=== PATIENT | male | born 1970 | race Caucasian/White ===

== ENCOUNTER 2019-02-08 09:10 | Inpatient (IN) ==
--- NOTE | 2019-02-08 09:36 | Emergency Department Note ---
Disposition Clinical Impression: Depression, Bipolar disorder Disposition: Admitted As Inpatient Condition: Fair Forms: ED Satisfaction Letter Time of Disposition: 10:45 Psych HPI - General Chief Complaint: ED Psychiatric Symptoms Stated Complaint: 1A depression Time Seen by Provider: 02/08/19 09:17 Source: patient - History of Present Illness HPI Narrative: Patient is a 48-year-old male who presents to emergency room with complaints of depression, anxiety. The patient apparently has been working through this as an outpatient, he states the last month it has been much worse. There is no other inciting events. The patient is not homicidal, he is not suicidal. The patient has no active plan to try and hurt himself. However he has been staying in his house for majority the time sleeping a majority of the time. There is only thing that makes his symptoms better. The patient has never tried to hurt himself. Patient has never been admitted to a psychiatric facility in the past. Patient denies any current headache, chest pain, shortness of breath. Patient has been battling significant anxiety especially when he tries to leave the house. Patient is on medications apparently for this. The patient is not having any hallucinations, he is not having any auditory or visual hallucinations. Patient apparently has been in contact again with his psychiatrist, they apparently has been in contact with the [facility] for [facility] for psychiatric care. - Related Data Home Medications Medication Instructions Recorded Confirmed Citalopram [CeleXA] 20 mg PO DAILY 01/31/19 02/08/19 Temazepam [Restoril] 30 mg PO HS 01/31/19 02/08/19 lamoTRIgine [Lamotrigine] 200 mg PO DAILY 01/31/19 02/08/19 Cetirizine HCl [Zyrtec] 10 mg PO DAILY 02/08/19 02/08/19 Eletriptan HBr [Relpax] 40 mg PO PRN PRN 02/08/19 02/08/19 [place] Carbonate 300 mg PO HS 02/08/19 02/08/19 clonazePAM [Klonopin] 0.5 mg PO DAILY 02/08/19 02/08/19 Allergies Allergy/AdvReac Type Severity Reaction Status Date / Time Penicillins Allergy Anaphylaxis Verified 01/31/19 09:48 Review of Systems: As mentioned per history of present illness and as follows. Constitutional: Negative for chills or fever HENT: Negative for sore throat. Eyes: Negative for visual disturbance Respiratory: Negative for shortness of breath. Cardiovascular: Negative for palpitations. Gastrointestinal: Negative for abdominal pain Genitourinary: Negative for dysuria Musculoskeletal: Negative for back pain. Skin: Negative for rash. Neurological: Negative for focal weakness Psychiatric/Behavioral: Positive for depression Past Medical History - Past Medical History Medical history: Reports: arthritis, GERD, migraine Psychiatric history: Reports: anxiety, bipolar, depression - Social History Smoking Status: Never smoker Alcohol use: Reports: none Drug use: Reports: none Physical Exam PHYSICAL EXAM Constitutional: Well developed, Well nourished, No acute distress, Non-toxic appearance. HENT: Normocephalic, Atraumatic, Bilateral external ears normal, Oropharynx moist, No oral exudates, Nose normal. Neck- Normal range of motion, No tenderness, Supple. Eyes: PERRL, EOMI, Conjunctiva normal,. Cardiovascular: Regular rate and rhythm without clicks, rubs, gallops or murmurs. Respiratory: Normal breath sounds, No respiratory distress, No wheezing, rhonchi, or crackles. GI: Soft, nontender, no evidence of guarding or peritoneal signs. Bowel sounds are active. Musculoskeletal: Good range of motion in all major joints. No tenderness to palpation or major deformities noted. +5/5 strength noted to all extremities. Integument: Warm, Dry, No erythema, No rash. No edema. Neurologic: Alert & oriented x 3, Normal sensory function, No focal deficits noted. CN II-XII grossly intact. Psychologic: The patient has a somewhat flat, depressed affect. Emergency room. The patient voices no homicidal or suicidal ideation. Patient does make good eye contact. Patient has overall good insight here in the emergency room as well. - General Limitations: no limitations General appearance: alert, in no apparent distress Course Vital Signs Temperature 98.2 F 02/08/19 09:22 Pulse Rate 68 02/08/19 09:22 Respiratory Rate 14 02/08/19 09:22 Blood Pressure 124/78 02/08/19 09:22 O2 Sat by Pulse Oximetry 97 02/08/19 09:22 Temperature 98.2 F 02/08/19 09:22 Pulse Rate 68 02/08/19 09:22 Respiratory Rate 14 02/08/19 09:22 Blood Pressure 124/78 02/08/19 09:22 O2 Sat by Pulse Oximetry 97 02/08/19 09:22 Oxygen Delivery Oxygen Delivery Room Air Psych - MDM Narrative Medical decision making narrative: Patient is medically clear from my standpoint. The patient this point in time. Case discussed with 1A we will be admitting the patient to their unit. The patient at this point time will be admitted in stable condition. Final impression 1. Bipolar disorder - Lab Data Result diagrams: 02/08/19 09:54 02/08/19 09:54 Lab Results 02/08/19 02/08/19 02/08/19 Range/Units 09:20 09:20 09:54 WBC 6.8 (4.3-11.1) K/mcL RBC 5.10 (4.19-5.50) M/mcL Hgb 16.0 (12.9-16.9) g/dL Hct 46.3 (37.5-50.1) % MCV 90.8 (83.0-100.0) fL MCH 31.4 (28.0-33.3) pg MCHC 34.6 (31.6-35.5) g/dL RDW 12.2 (11.5-14.5) % Plt Count 275 (140-400) K/mcL MPV 9.0 L (9.4-12.4) fL Immature Gran % 0.4 (0-4) % Seg Neutrophils % 61.6 % Lymphocytes % 18.4 % Monocytes % 5.4 % Eosinophils % 12.9 % Basophils % 1.3 % Neutrophils # 4.2 (1.6-8.9) K/mcL Lymphocytes # 1.3 (0.6-4.6) K/mcL Monocytes # 0.4 (0.0-1.3) K/mcL Eosinophils # 0.9 H (0.0-0.6) K/mcL Basophils # 0.1 (0.0-0.2) K/mcL Sodium (136-145) mEq/L Potassium (3.5-5.1) mEq/L Chloride (98-107) mEq/L Carbon Dioxide (23-29) mEq/L BUN (6-20) mg/dL Creatinine (0.70-1.30) mg/dL Est GFR ( Amer) (> 60) Est GFR (Non-Af Amer) (> 60) BUN/Creatinine Ratio (6-26) Glucose (70-105) mg/dL Calculated Osmolality (280-300) Calcium (8.6-10.3) mg/dL Urine Color Yellow (Yellow) Urine Clarity Clear (Clear) Urine pH 6.0 (5.0-8.0) pH Units Ur Specific [place] 1.014 (1.010-1.025) Urine Protein Negative (Neg-Trace) mg/dL Urine Glucose (UA) Normal (Normal) mg/dL Urine Ketones Negative (Negative) mg/dL Urine Blood Negative (Negative) Urine Nitrite Negative (Negative) Urine Bilirubin Negative (Negative) Urine Urobilinogen Normal (Normal) mg/dL Ur Leukocyte Esterase Negative (Negative) Salicylates (15.0-30.0) mg/dL Urine Opiates Screen Negative (Lvtcfi=381) ng/mL Ur Buprenorphine Scrn Negative (Cutoff=5) ng/mL Acetaminophen (10-20) mcg/mL Ur Barbiturates Screen Negative (Ynmcyc=607) ng/mL Ur Phencyclidine Scrn Negative (Cutoff=25) ng/mL Ur Amphetamines Screen Negative (Lwwsbf=3390) ng/mL U Benzodiazepines Scrn Negative (Fulbll=251) ng/mL Urine Cocaine Screen Negative (Cutoff= 300) ng/mL U Marijuana (THC) Screen Negative (Cutoff = 50) ng/mL Ur Drug Screen Interp See Below Ethyl Alcohol (Less than 10) mg/dL 02/08/19 Range/Units 09:54 WBC (4.3-11.1) K/mcL RBC (4.19-5.50) M/mcL Hgb (12.9-16.9) g/dL Hct (37.5-50.1) % MCV (83.0-100.0) fL MCH (28.0-33.3) pg MCHC (31.6-35.5) g/dL RDW (11.5-14.5) % Plt Count (140-400) K/mcL MPV (9.4-12.4) fL Immature Gran % (0-4) % Seg Neutrophils % % Lymphocytes % % Monocytes % % Eosinophils % % Basophils % % Neutrophils # (1.6-8.9) K/mcL Lymphocytes # (0.6-4.6) K/mcL Monocytes # (0.0-1.3) K/mcL Eosinophils # (0.0-0.6) K/mcL Basophils # (0.0-0.2) K/mcL Sodium 140 (136-145) mEq/L Potassium 4.1 (3.5-5.1) mEq/L Chloride 107 (98-107) mEq/L Carbon Dioxide 27 (23-29) mEq/L BUN 12 (6-20) mg/dL Creatinine 1.13 (0.70-1.30) mg/dL Est GFR ( Amer) > 60 (> 60) Est GFR (Non-Af Amer) > 60 (> 60) BUN/Creatinine Ratio 11 (6-26) Glucose 151 H (70-105) mg/dL Calculated Osmolality 293 (280-300) Calcium 9.5 (8.6-10.3) mg/dL Urine Color (Yellow) Urine Clarity (Clear) Urine pH (5.0-8.0) pH Units Ur Specific [place] (1.010-1.025) Urine Protein (Neg-Trace) mg/dL Urine Glucose (UA) (Normal) mg/dL Urine Ketones (Negative) mg/dL Urine Blood (Negative) Urine Nitrite (Negative) Urine Bilirubin (Negative) Urine Urobilinogen (Normal) mg/dL Ur Leukocyte Esterase (Negative) Salicylates < 2.5 L (15.0-30.0) mg/dL Urine Opiates Screen (Ivxeir=596) ng/mL Ur Buprenorphine Scrn (Cutoff=5) ng/mL Acetaminophen < 10 L (10-20) mcg/mL Ur Barbiturates Screen (Ofibii=065) ng/mL Ur Phencyclidine Scrn (Cutoff=25) ng/mL Ur Amphetamines Screen (Cjluzi=9186) ng/mL U Benzodiazepines Scrn (Lhnwjq=850) ng/mL Urine Cocaine Screen (Cutoff= 300) ng/mL U Marijuana (THC) Screen (Cutoff = 50) ng/mL Ur Drug Screen Interp Ethyl Alcohol < 10 (Less than 10) mg/dL Psychiatric Medical Clearance - Medical Clearance Checklist Medical History: No Social History Section defined Current Vitals: Last Vital Signs Temp 98.2 F 02/08/19 09:22 Pulse 68 02/08/19 09:22 Resp 14 02/08/19 09:22 BP 124/78 02/08/19 09:22 Pulse Ox 97 02/08/19 09:22 Psychiatric Lab Panel: Drug Levels and Toxicity 02/08/19 02/08/19 09:20 09:54 Urine Opiates Screen Negative Acetaminophen < 10 L Ur Barbiturates Screen Negative Ur Phencyclidine Scrn Negative Ur Amphetamines Screen Negative U Benzodiazepines Scrn Negative Urine Cocaine Screen Negative U Marijuana (THC) Screen Negative Ethyl Alcohol < 10 Abnormal Labs: Abnormal lab results MPV 9.0 fL (9.4-12.4) L 02/08/19 09:54 Eosinophils # 0.9 K/mcL (0.0-0.6) H 02/08/19 09:54 Glucose 151 mg/dL (70-105) H 02/08/19 09:54 Salicylates < 2.5 mg/dL (15.0-30.0) L 02/08/19 09:54 Acetaminophen < 10 mcg/mL (10-20) L 02/08/19 09:54 Statement of Medical Clearance: I have evaluated the patient, reviewed diagnostic information, and certify that the patient's medical condition is sufficiently stable that transfer to the psychiatric unit does not pose a significant risk of deterioration.
[2019-02-08 09:44] LABS: Bilirubin,Urine Negative (Negative); Blood,Urine Negative (Negative); Clarity,Urine Clear (Clear); Color,Urine Yellow (Yellow); Glucose,Urine (UA) Normal (Normal); Ketones,Urine Negative (Negative); Leukocyte Esterase,Urine Negative (Negative); Nitrite,Urine Negative (Negative); Protein,Urine Negative (Neg-Trace); Specific Gravity,Urine 1.014 (1.010-1.025); Urobilinogen,Urine Normal (Normal)
[2019-02-08 09:55] LABS: Amphetamine Screen,Urine Negative ng/mL (Cutoff=1000); Barbiturate Screen,Urine Negative ng/mL (Cutoff=200); Benzodiazepines Screen,Urine Negative ng/mL (Cutoff=200); Cannabinoid Screen,Urine Negative ng/mL (Cutoff = 50); Cocaine Screen,Urine Negative ng/mL (Cutoff= 300); Opiate Screen,Urine Negative ng/mL (Cutoff=300); Phencyclidine Screen,Urine Negative ng/mL (Cutoff=25)
[2019-02-08 10:09] LABS: Basophils # 0.1 K/mcL (0.0-0.2); Basophils % 1.3 %; Eosinophils # 0.9 K/mcL (0.0-0.6); Eosinophils % 12.9 %; Hematocrit 46.3 % (37.5-50.1); Immature Granulocytes % 0.4 % (0-4); Lymphocytes # 1.3 K/mcL (0.6-4.6); Lymphocytes % 18.4 %; Mean Corpuscular HGB Conc 34.6 g/dL (31.6-35.5); Mean Corpuscular Hemoglobin 31.4 pg (28.0-33.3); Mean Corpuscular Volume 90.8 fL (83.0-100.0); Monocytes # 0.4 K/mcL (0.0-1.3); Monocytes % 5.4 %; Neutrophils # 4.2 K/mcL (1.6-8.9); Platelet Count 275 K/mcL (140-400); Red Cell Distribution Width 12.2 % (11.5-14.5); Segmented Neutrophils % 61.6 %; White Blood Count 6.8 K/mcL (4.3-11.1)
[2019-02-08 10:25] LABS: Acetaminophen < 10 mcg/mL (10-20); BUN/Creatinine Ratio 11 (6-26); Blood Urea Nitrogen 12 mg/dL (6-20); Calcium 9.5 mg/dL (8.6-10.3); Carbon Dioxide 27 mEq/L (23-29); Chloride 107 mEq/L (98-107); Ethanol < 10 mg/dL (Less than 10); Glucose 151 mg/dL (70-105); Osmolality,Calculated 293 (280-300); Potassium 4.1 mEq/L (3.5-5.1); Salicylate < 2.5 mg/dL (15.0-30.0); Sodium 140 mEq/L (136-145); eGFR For African Americans > 60 (> 60); eGFR For Non-African Americans > 60 (> 60)
[2019-02-08] MEDS ORDERED: Acetaminophen 325 MG TABLET PO PRN (12:29)
[2019-02-08] MEDS ORDERED: Mag Hydrox/Al Hydrox/Simeth 30 ML UDC PO PRN (12:29)
[2019-02-08] MEDS ORDERED: hydrOXYzine pamoate 25 MG CAPSULE PO PRN (12:29)
[2019-02-08] MEDS ORDERED: MOM Conc 10 ML UD.LIQ PO PRN (12:29)
[2019-02-08] MEDS ORDERED: *HR* LORazepam 2 MG/ML VIAL IM PRN (12:29)
[2019-02-08] MEDS ORDERED: Haloperidol Lactate 5 MG/ML VIAL IM PRN (12:29)
[2019-02-08] MEDS ORDERED: *HR* LORazepam 1 MG TABLET PO PRN (12:29)
[2019-02-08] MEDS ORDERED: traZODone 50 MG TABLET PO PRN (12:29)
[2019-02-08] MEDS ORDERED: ELETRIPTAN HBR 40 MG PO PRN (12:46)
[2019-02-08] MEDS ORDERED: RELPAX 40 MG PO PRN ×2 (18:28→18:45)
[2019-02-08] MEDS: Temazepam 15 MG CAPSULE PO SCH (20:25)
[2019-02-08] MEDS ORDERED: Lithium Carbonate 300 MG CAPSULE PO SCH (21:00)
[2019-02-09] MEDS: Loratadine 10 MG TABLET PO SCH (08:34)
[2019-02-09] MEDS ORDERED: clonazePAM 0.5 MG TABLET PO SCH (09:00)
[2019-02-09] MEDS ORDERED: lamoTRIgine 100 MG TABLET PO SCH ×2 (09:00→09:45)
[2019-02-09] MEDS ORDERED: clonazePAM 0.5 MG TABLET PO PRN (09:41)
--- NOTE | 2019-02-09 09:56 | Psychiatry Progress Note ---
Date of Encounter: 02/09/19 Time of Encounter: 09:54 Subjective Interval history: Patient was sent to the emergency room by Dr. Sheriff. She had to send him once before earlier this week due to the severity of his rapid cycling bipolar disorder. He earlier this week he was having severe depressive episode and unable to care for his needs. He has had to be out on FMLA. Right now his depression has somewhat increased but he is feeling elevated with hyperverbal, racing thoughts, impulsivity. He reports that from October to November he did well but then in December and January he had mood changes that would last anywhere from 5 days to 2 weeks between depression and that it was very severe and lamberto or hypomania. He denies psychotic symptoms. He also reports anxiety with worry about a number of different topics. The theme was just increased to 600 mg by mouth daily at bedtime on Thursday. He has hopelessness. Review of Systems Constitutional: Denies: fever Eyes: Denies: eye pain Ears, Nose, Throat: Denies: ear pain Cardiovascular: Denies: chest pain Respiratory: Denies: cough Gastrointestinal: Denies: abdominal pain Genitourinary male: Denies: urgency Genitourinary female: Denies: urgency Musculoskeletal: Denies: back pain Integumentary: Denies: rash Neurological: Reports: weakness Psychiatric: Reports: depression, anxiety, abnormal sleep pattern, difficulty concentrating, hopelessness, irritability, mood swings Endocrine: Reports: fatigue Hematologic/Lymphatic: Denies: easy bleeding Allergic/Immunologic: Denies: facial swelling Results - Vital Signs Vital Signs: Temp Pulse Resp BP Pulse Ox 96.5 F L 79 18 125/81 97 02/09/19 09:00 02/09/19 09:00 02/09/19 09:00 02/09/19 09:00 02/09/19 09:00 - Drug Levels and Toxicology Drug Levels and Toxicology: Drug Levels and Toxicity 02/08/19 02/08/19 09:20 09:54 Urine Opiates Screen Negative Acetaminophen < 10 L Ur Barbiturates Screen Negative Ur Phencyclidine Scrn Negative Ur Amphetamines Screen Negative U Benzodiazepines Scrn Negative Urine Cocaine Screen Negative U Marijuana (THC) Screen Negative Ethyl Alcohol < 10 - Labs Labs: Laboratory Results - last 24 hr 02/08/19 02/08/19 02/08/19 09:20 09:54 09:54 WBC 6.8 RBC 5.10 Hgb 16.0 Hct 46.3 MCV 90.8 MCH 31.4 MCHC 34.6 RDW 12.2 Plt Count 275 MPV 9.0 L Immature Gran % 0.4 Seg Neutrophils % 61.6 Lymphocytes % 18.4 Monocytes % 5.4 Eosinophils % 12.9 Basophils % 1.3 Neutrophils # 4.2 Lymphocytes # 1.3 Monocytes # 0.4 Eosinophils # 0.9 H Basophils # 0.1 Sodium 140 Potassium 4.1 Chloride 107 Carbon Dioxide 27 BUN 12 Creatinine 1.13 Est GFR ( Amer) > 60 Est GFR (Non-Af Amer) > 60 BUN/Creatinine Ratio 11 Glucose 151 H Calculated Osmolality 293 Calcium 9.5 Salicylates < 2.5 L Urine Opiates Screen Negative Ur Buprenorphine Scrn Negative Acetaminophen < 10 L Ur Barbiturates Screen Negative Ur Phencyclidine Scrn Negative Ur Amphetamines Screen Negative U Benzodiazepines Scrn Negative Urine Cocaine Screen Negative U Marijuana (THC) Screen Negative Ethyl Alcohol < 10 Consult Discharge Plan - Plan Referrals: NONE,PCP [Primary Care Provider] - - Attending Attestation I examined this patient and my medical decision-making was reviewed with the Resident Physician. I agree with the documented findings, disposition and treatment plan as described except to the extent set forth below. Psychiatry Exam - Constitutional Vitals: Temp Pulse Resp BP Pulse Ox 96.5 F L 79 18 125/81 97 02/09/19 09:00 02/09/19 09:00 02/09/19 09:00 02/09/19 09:00 02/09/19 09:00 General appearance: well-groomed - Musculoskeletal Gait: slow Station: stooped Strength & Tone: mild weakness - Psychiatric Patient Orientation: Yes Person, Yes Time, Yes Place, Yes Circumstance
--- NOTE | 2019-02-09 10:00 | Psychiatry History & Physical ---
Date of Encounter: 02/09/19 Time of Encounter: 09:58 History of Present Illness Patient Stated Chief Complaint: "My moods all over the place" Medicare Admission Attestation: For traditional Medicare patients the provided hospital inpatient services are reasonable and necessary and in the case of services not specified as inpatient-only under 42 CFR 419.22 (n), that they are appropriately provided as inpatient services in accordance 42 CFR 412.3. For Critical Access Hospital the patient may reasonably be expected to be discharged or transferred to a hospital within 96 hours after admission to the Critical Access Hospital. Admitted From: Emergency Dept Plans for Post Hospital Care: Home History of Present Illness: Mr. Lebron is a 48 year old male Patient was sent to the emergency room by Dr. Sheriff. She had to send him once before earlier this week due to the severity of his rapid cycling bipolar disorder. He earlier this week he was having severe depressive episode and unable to care for his needs. He has had to be out on FMLA. Right now his depression has somewhat increased but he is feeling elevated with hyperverbal, racing thoughts, impulsivity. He reports that from October to November he did well but then in December and January he had mood changes that would last anywhere from 5 days to 2 weeks between depression and that it was very severe and lamberto or hypomania. He denies psychotic symptoms. He also reports anxiety with worry about a number of different topics. The theme was just increased to 600 mg by mouth daily at bedtime on Thursday. He has hopelessness. Past Med Surg Social Fam HX - Past Medical History Medical history: arthritis, GERD, migraine - Past Psychiatric History Psychiatric history: Reports: bipolar. Denies: prior suicide attempt, previous psychiatric hospitalization Past psychiatric history details: He sees Dr. Sheriff at [facility]. He also sees Dr. Trotter for counseling. He has no prior suicide attempts. No prior hospitalizations. [place] was recently increased to 600 mg at bedtime on Thursday. Family psychiatric history: Yes Family Psychiatric History Details: He says there is a lot of chemical dependency and mental illness on his mother's side of the family but he does not know details as they are estranged. Family History of Suicide: Completed Family Suicide History Details: He has 3 cousins who completed suicide. - Social History Smoking Status: Never smoker Alcohol use: none Drug use: none Occupational status: employed Current living situation: Home, With Family Activity Level: Independent ambulation Recent Out of Country Travel Within the Last 8 Weeks: No Exposure or Possible Exposure to Illness During Travel: No Additional social history: No substance use. He lives at home with his and 15-year-old daughter. He works at a manufacturing facility and purchasing. He is on FMLA and thinks he has 2 weeks left of this. - Family History Mother Name: Radha Age: 67 Family Member Ethnicity: Non- Living Status: Still Living Hx Family Cardiac Disorders: Yes Hx Family Respiratory Disorders: Yes Hx Family Cancer: No Hx Family GI Disorders: No Hx Family Genitourinary Disorders: No Hx Family Endocrine Disorder: No Hx Family Musculoskeletal Disorders: No Hx Family Neuromuscular Disorders: No Hx Family Neurologic Disorders: No Hx Family HEENT Disorders: No Hx Family Autoimmune Disorders: No Hx Family Reproductive Disorders: No Hx Family Psychosocial Disorders: No Hx Family Medical Disorders: No Medications & Allergies Citalopram [CeleXA] 20 mg PO DAILY 01/31/19 [History] Temazepam [Restoril] 30 mg PO HS 01/31/19 [History] lamoTRIgine [Lamotrigine] 200 mg PO DAILY 01/31/19 [History] Cetirizine HCl [Zyrtec] 10 mg PO DAILY 02/08/19 [History] Eletriptan HBr [Relpax] 40 mg PO DAILY PRN 02/08/19 [History] [place] Carbonate 600 mg PO HS 02/08/19 [History] clonazePAM [Clonazepam] 0.5 - 1 mg PO BID PRN 02/08/19 [History] Allergy/AdvReac Type Severity Reaction Status Date / Time Penicillins Allergy Anaphylaxis Verified 01/31/19 09:48 Review of Systems Constitutional: Denies: fever Eyes: Denies: eye pain Ears, Nose, Throat: Denies: ear pain Cardiovascular: Denies: chest pain Respiratory: Denies: cough Gastrointestinal: Denies: abdominal pain Genitourinary male: Denies: urgency Musculoskeletal: Denies: back pain Integumentary: Denies: rash Neurological: Denies: headache Psychiatric: Reports: depression, anxiety, abnormal sleep pattern, difficulty concentrating, hopelessness, irritability, mood swings Endocrine: Denies: fatigue Hematologic/Lymphatic: Denies: easy bleeding Allergic/Immunologic: Denies: facial swelling Exam - HEENT Head exam IM: Present: atraumatic Eye exam IM: Present: EOMI ENT exam IM: Present: mucous membranes moist - Neurological Neurological exam: Present: CN II-XII intact - Respiratory Respiratory exam IM: Absent: respiratory distress - GI/Abdominal GI/Abdominal exam IM: Present: no peritoneal signs - Extremities Extremities exam IM: Present: full ROM - Skin Skin exam IM: Absent: diaphoretic - Constitutional Vitals: Temp Pulse Resp BP Pulse Ox 96.5 F L 79 18 125/81 97 02/09/19 09:00 02/09/19 09:00 02/09/19 09:00 02/09/19 09:00 02/09/19 09:00 General appearance: age & developmentally appropriate - Musculoskeletal Gait: slow Station: stooped Strength & Tone: mild weakness - Psychiatric Patient Orientation: Yes Person, Yes Time, Yes Place, Yes Circumstance Level of alertness: Alert Behavior: distractible, impulsive Psychomotor activity: Increased Eye Contact: Intense Contact Mood Description: Elevated, Euphoric, Labile Patient description of mood: "I am all over the place" Affect description: labile Speech Volume: Normal Speech pattern: excessive Language & Vocabulary: consistent with education Thought Process: Tangential Thought Content: Yes Intact Perceptual Disturbances: No Auditory hallucinations, No Visual hallucinations Attention Span Ability: Capable of Focused Attention Memory Description: Grossly Intact Patient Reliability: Reliable Historian Fund of knowledge: Yes abstraction ability, Yes average, Yes aware of current events Intelligence Estimate: Average Judgment: Limited Insight: Minimal Results - Drug Levels and Toxicology Drug Levels and Toxicology: Drug Levels and Toxicity 02/08/19 09:54 Acetaminophen < 10 L Ethyl Alcohol < 10 - Labs Labs: Laboratory Last Values WBC 6.8 K/mcL (4.3-11.1) 02/08/19 09:54 RBC 5.10 M/mcL (4.19-5.50) 02/08/19 09:54 Hgb 16.0 g/dL (12.9-16.9) 02/08/19 09:54 Hct 46.3 % (37.5-50.1) 02/08/19 09:54 MCV 90.8 fL (83.0-100.0) 02/08/19 09:54 MCH 31.4 pg (28.0-33.3) 02/08/19 09:54 MCHC 34.6 g/dL (31.6-35.5) 02/08/19 09:54 RDW 12.2 % (11.5-14.5) 02/08/19 09:54 Plt Count 275 K/mcL (140-400) 02/08/19 09:54 MPV 9.0 fL (9.4-12.4) L 02/08/19 09:54 Immature Gran % 0.4 % (0-4) 02/08/19 09:54 Seg Neutrophils % 61.6 % 02/08/19 09:54 Lymphocytes % 18.4 % 02/08/19 09:54 Monocytes % 5.4 % 02/08/19 09:54 Eosinophils % 12.9 % 02/08/19 09:54 Basophils % 1.3 % 02/08/19 09:54 Neutrophils # 4.2 K/mcL (1.6-8.9) 02/08/19 09:54 Lymphocytes # 1.3 K/mcL (0.6-4.6) 02/08/19 09:54 Monocytes # 0.4 K/mcL (0.0-1.3) 02/08/19 09:54 Eosinophils # 0.9 K/mcL (0.0-0.6) H 02/08/19 09:54 Basophils # 0.1 K/mcL (0.0-0.2) 02/08/19 09:54 Sodium 140 mEq/L (136-145) 02/08/19 09:54 Potassium 4.1 mEq/L (3.5-5.1) 02/08/19 09:54 Chloride 107 mEq/L (98-107) 02/08/19 09:54 Carbon Dioxide 27 mEq/L (23-29) 02/08/19 09:54 BUN 12 mg/dL (6-20) 02/08/19 09:54 Creatinine 1.13 mg/dL (0.70-1.30) 02/08/19 09:54 Est GFR ( Amer) > 60 (> 60) 02/08/19 09:54 Est GFR (Non-Af Amer) > 60 (> 60) 02/08/19 09:54 BUN/Creatinine Ratio 11 (6-26) 02/08/19 09:54 Glucose 151 mg/dL (70-105) H 02/08/19 09:54 Calculated Osmolality 293 (280-300) 02/08/19 09:54 Calcium 9.5 mg/dL (8.6-10.3) 02/08/19 09:54 Urine Color Yellow (Yellow) 02/08/19 09:20 Urine Clarity Clear (Clear) 02/08/19 09:20 Urine pH 6.0 pH Units (5.0-8.0) 02/08/19 09:20 Ur Specific [place] 1.014 (1.010-1.025) 02/08/19 09:20 Urine Protein Negative mg/dL (Neg-Trace) 02/08/19 09:20 Urine Glucose (UA) Normal mg/dL (Normal) 02/08/19 09:20 Urine Ketones Negative mg/dL (Negative) 02/08/19 09:20 Urine Blood Negative (Negative) 02/08/19 09:20 Urine Nitrite Negative (Negative) 02/08/19 09:20 Urine Bilirubin Negative (Negative) 02/08/19 09:20 Urine Urobilinogen Normal mg/dL (Normal) 02/08/19 09:20 Ur Leukocyte Esterase Negative (Negative) 02/08/19 09:20 Salicylates < 2.5 mg/dL (15.0-30.0) L 02/08/19 09:54 Urine Opiates Screen Negative ng/mL (Lgmvnl=519) 02/08/19 09:20 Ur Buprenorphine Scrn Negative ng/mL (Cutoff=5) 02/08/19 09:20 Acetaminophen < 10 mcg/mL (10-20) L 02/08/19 09:54 Ur Barbiturates Screen Negative ng/mL (Cruzth=530) 02/08/19 09:20 Ur Phencyclidine Scrn Negative ng/mL (Cutoff=25) 02/08/19 09:20 Ur Amphetamines Screen Negative ng/mL (Qlrxyw=7045) 02/08/19 09:20 U Benzodiazepines Scrn Negative ng/mL (Ojxpgq=777) 02/08/19 09:20 Urine Cocaine Screen Negative ng/mL (Cutoff= 300) 02/08/19 09:20 U Marijuana (THC) Screen Negative ng/mL (Cutoff = 50) 02/08/19 09:20 Ur Drug Screen Interp See Below 02/08/19 09:20 Ethyl Alcohol < 10 mg/dL (Less than 10) 02/08/19 09:54 Assessment and Plan (1) Bipolar disorder, rapid cycling Current visit: Yes Status: Acute Plan: Admit inpatient for safety and stabilization, Close observation, Suicide Precautions per unit protocol, Encourage participation in unit milieu, Group Therapy, Monitor sleep, Monitor appetite Additional Plan: Decrease Lamictal to 175 by mouth daily. We will try to decrease by 25 mg daily. Discontinue Celexa. Check EKG. Check a lithium level on Thursday. Encourage group attendance. Risks, benefits, side effects, alternatives discussed w/pt: Yes Patient agreeable to treatment: Yes Plans for Post Hospital Care: Home Estimated Length of Stay (Days): 5
[2019-02-09] MEDS: Lithium Carbonate 300 MG CAPSULE PO SCH (21:16)
[2019-02-09] MEDS: Temazepam 15 MG CAPSULE PO SCH (21:16)
[2019-02-10] MEDS: Loratadine 10 MG TABLET PO SCH (08:48)
[2019-02-10] MEDS ORDERED: lamoTRIgine 25 MG TABLET PO SCH (09:00)
--- NOTE | 2019-02-10 12:29 | Psychiatry Progress Note ---
Date of Encounter: 02/10/19 Time of Encounter: 12:26 Subjective Interval history: Client reports he is feeling much better. Thinks [place] is working. Off the Celexa. Lamictal continues to be titrated down. Will likely be discharged on 50mg daily. At time of admission was taking 200mg daily. Scheduled to have an EKG and [place] level tomorrow. If those things come back wnl client can likely be discharged home. Has follow up arranged with [facility] on Thursday. He is denying any SI, intent, or plan and states his mood has improved significantly. He has been attending all groups and is pleasant toward staff and peers. Review of Systems Constitutional: Denies: fever, chills, weakness, weight change Eyes: Denies: eye pain, vision change Ears, Nose, Throat: Denies: ear pain, throat pain, dental pain, hearing loss, congestion Cardiovascular: Denies: chest pain, palpitations, dyspnea on exertion Respiratory: Denies: cough, dyspnea, wheezes Gastrointestinal: Denies: abdominal pain, nausea, vomiting, diarrhea, constipation Musculoskeletal: Denies: joint swelling, joint pain Neurological: Denies: headache, weakness, numbness, memory loss Psychiatric: Reports: depression, anxiety, abnormal sleep pattern, difficulty concentrating, hopelessness, irritability, mood swings Results - Vital Signs Vital Signs: Temp Pulse Resp BP Pulse Ox 97.1 F L 71 19 122/80 96 02/10/19 09:00 02/10/19 09:00 02/10/19 09:00 02/10/19 09:00 02/10/19 09:00 Assessment and Plan (1) Bipolar disorder, rapid cycling Current visit: Yes Status: Acute Plan: Continue hospitalization, Close observation, Suicide Precautions per unit protocol, Encourage participation in unit milieu, Group Therapy, Monitor sleep, Monitor appetite Risks, benefits, side effects, alternatives discussed w/pt: Yes Patient agreeable to treatment: Yes Consult Discharge Plan - Plan Referrals: NONE,PCP [Primary Care Provider] - Psychiatry Exam - Constitutional Vitals: Temp Pulse Resp BP Pulse Ox 97.1 F L 71 19 122/80 96 02/10/19 09:00 02/10/19 09:00 02/10/19 09:00 02/10/19 09:00 02/10/19 09:00 General appearance: age & developmentally appropriate, well-groomed, well- nourished - Musculoskeletal Gait: normal Station: relaxed Strength & Tone: normal for patient - Psychiatric Patient Orientation: Yes Person, Yes Time, Yes Place Level of alertness: Alert Behavior: calm, cooperative Psychomotor activity: Normal Eye Contact: Maintains Eye Contact Mood Description: Euthymic/stable Affect description: congruent with mood, full range Speech Volume: Normal Speech pattern: normal rate, normal rhythm, normal tone, fluent, spontaneous Language & Vocabulary: consistent with education Thought Process: Linear, Goal Oriented Thought Content: No Suicidal ideation, No Homicidal ideation, No Overt delusions Perceptual Disturbances: No Auditory hallucinations, No Visual hallucinations Attention Span Ability: Capable of Focused Attention Memory Description: Grossly Intact Patient Reliability: Reliable Historian Fund of knowledge: Yes abstraction ability, Yes aware of current events Intelligence Estimate: Average Judgment: Fair Insight: Partial
[2019-02-10] MEDS: Temazepam 15 MG CAPSULE PO SCH (20:26)
[2019-02-10] MEDS: Lithium Carbonate 300 MG CAPSULE PO SCH (20:26)
[2019-02-11] MEDS ORDERED: lamoTRIgine 25 MG TABLET PO SCH (09:00)
[2019-02-11] MEDS: Loratadine 10 MG TABLET PO SCH (09:04)
[2019-02-11 09:32] VITALS: BP 114/73
--- NOTE | 2019-02-11 10:10 | Discharge Summary ---
Date of Encounter: 02/11/19 Time of Encounter: 10:07 Diagnosis - Discharge Diagnosis (1) Bipolar disorder, rapid cycling Status: Acute Medications - Discharge Medications Prescriptions: lamoTRIgine [Lamictal] 50 mg PO DAILY #14 tablet Transmission Status: Pending to [id number] [place] Carbonate 600 mg PO HS #60 capsule Transmission Status: Pending to [facility] #[id number] Temazepam [Restoril] 30 mg PO HS 01/31/19 [History] Cetirizine HCl [Zyrtec] 10 mg PO DAILY 02/08/19 [History] Eletriptan HBr [Relpax] 40 mg PO DAILY PRN 02/08/19 [History] clonazePAM [Clonazepam] 0.5 - 1 mg PO BID PRN 02/08/19 [History] Docusate [Colace] 100 mg PO DAILY capsule 02/11/19 [Rx] [place] Carbonate 600 mg PO HS #60 capsule 02/11/19 [Rx] lamoTRIgine [Lamictal] 50 mg PO DAILY #14 tablet 02/11/19 [Rx] Allergy/AdvReac Type Severity Reaction Status Date / Time Penicillins Allergy Anaphylaxis Verified 01/31/19 09:48 Results Procedures and tests throughout hospitalization: Completed Lab Orders Category Date Time Status Acetaminophen Stat Lab 02/08/19 09:54 Completed Basic Metabolic Panel Stat Lab 02/08/19 09:54 Completed Complete Blood Count [HEME] Stat Lab 02/08/19 09:54 Completed Drug Screen, Urine [UCHEM] Stat Lab 02/08/19 09:20 Completed Ethanol Stat Lab 02/08/19 09:54 Completed Salicylate Stat Lab 02/08/19 09:54 Completed Urinalysis reflex Microscopic [URIN] Stat Lab 02/08/19 09:20 Completed Provider Date of admission: 02/08/19 10:45 Primary care physician: PCP NONE Discharging clinician: Marleny Harrell Psychiatry Exam - Constitutional Vitals: Temp Pulse Resp BP Pulse Ox 97.4 F L 72 18 114/73 97 02/11/19 09:00 02/11/19 09:00 02/11/19 09:00 02/11/19 09:00 02/11/19 09:00 General appearance: age & developmentally appropriate, well-groomed, well- nourished - Musculoskeletal Gait: normal Station: relaxed Strength & Tone: normal for patient - Psychiatric Patient Orientation: Yes Person, Yes Time, Yes Place Level of alertness: Alert Behavior: calm, cooperative Psychomotor activity: Normal Eye Contact: Maintains Eye Contact Mood Description: Euthymic/stable Affect description: congruent with mood, full range Speech Volume: Normal Speech pattern: normal rate, normal rhythm, normal tone, fluent, spontaneous Language & Vocabulary: consistent with education Thought Process: Linear, Goal Oriented Thought Content: No Suicidal ideation, No Homicidal ideation, No Overt delusions Perceptual Disturbances: No Auditory hallucinations, No Visual hallucinations Attention Span Ability: Capable of Focused Attention Memory Description: Grossly Intact Patient Reliability: Reliable Historian Fund of knowledge: Yes abstraction ability, Yes aware of current events Intelligence Estimate: Average Judgment: Fair Insight: Partial Hospital Course Hospital course: Mr. Lebron is a 48 year old male who was admitted for severe depression with decreased functional status. His outpatient provider had recommended a trial of [place] but was wanting this medication started on an inpatient basis. While on 1A client's Celexa was stopped, his Lamictal was titrated down from 200mg daily to 50mg daily with the plan to have it fully discontinued by his outpatient provider and he was started on [place] 600mg qhs. Client responded very well to these changes. Today client is reporting a positive mood. His affect is bright and reactive. He is future oriented. He is denying any SI, intent, or plan. He has been very pleasant on the unit. He has been out interacting with staff and peers and attending groups. Eating and sleeping well. A baseline EKG was done. He is currently waiting on a blood [place] level to be drawn. However, client also has a standing order to have his Tom[place] level checked in the community as he has an outpatient follow up luther ointment with his psychiatrist on Thursday. If the syrup machine laborer does not come soon client plans to have the lab done outpatient. He is on a relatively low dose of Tom[place] so expect his blood level to be reasonably low. However, clinically he is doing very well so no need to adjust dose at this time. Total time spent with client greater than 30 minutes. Patient was educated of his diagnosis and the risks, benefits, and side effects of this treatment and alternative treatment options and was monitored for responsiveness and side effects. Mood, anxiety, sleep, appetite, and interest i mproved, as did future orientation. Self-harm thoughts subsided, thinking cleared, psychosis resolved, and mood stabilized. Patient was able to attend both individual and group therapy sessions as well as meeting with the psychiatrist daily and urged to discuss any medication or treatment issues or other concerns. The patient was educated primarily by verbal means about their diagnosis and manifestations in their life. The option for treatment including group and individual therapy programming was offered to the patient in the use of medications with all their potential risks, benefits, and side effects were discussed with the patient at length. The patient was given the opportunity to ask questions and was noted to participate in the treatment in the planning process. The patient felt ready and eager to be discharged from the inpatient psychiatric unit to continue on with treatment as an outpatient. The patient agreed that he is safe for this disposition. The patient was considered to be able to participate in informed consent and decision making with respect to medical, legal, and financial issues of the time of discharge. At the time of discharge the patient adamantly denied any concerns for lethality including suicidal or homicidal thoughts ideations or plans and was future oriented toward ongoing mental health care, medical follow-up and sobriety. - Time Spent with Patient Total time spent providing and/or coordinating discharge services: Greater than 30 minutes Assessment and Plan - Patient/Caregiver Discharge Instructions Activity: resume usual activities as tolerated Diet: regular diet - Follow up Plan Follow up with: NONE,PCP [Primary Care Provider] - Functional capacity at discharge: independent ambulation Overall status at discharge: Stable Disposition: Home, Self-Care Quality - Multiple Antipsychotics Patient discharged on 2 or more antipsychotic medications: No Procedures - Procedures Procedures: Medication Management, Crisis Stabilization, Supportive Therapy, Olga Lidia up Therapy
--- NOTE | 2019-02-11 11:03 | Electrocardiograph Report ---
[address] [address] Test Date: 2019-02-10 Pat Name: Reji Lebron Department: 101 Room: 1A22 Gender: M Computer Systems Design Analyst: : 1970 Requested By: Mahi Perez Order Number: [id number] Reading MD: Gee Spann Measurements Intervals [place] Rate: 67 P: 56 VA: 167 QRS: 9 QRSD: 84 T: 18 QT: 385 QTc: 401 Interpretive Statements SINUS RHYTHM NONSPECIFIC T-WAVE ABNORMALITY Electronically Signed On 02-11-2019 11:02:10 EDT by Gee Spann
== END 2019-02-11 11:10 | disposition home or self-care (01) | DRG 885 ==
LOC: EMEROOARM 09:10 → 1ANU 10:45
PROVIDERS: ADMIT Psychiatry & Neurology Psychiatry; ATTEND Psychiatry & Neurology Psychiatry